=== PATIENT | male | born 2000 | race Caucasian/White ===

== ENCOUNTER → 2021-06-20 12:39 | Outpatient (REF) | payer BC, SELFPAY ==
--- NOTE | 2021-06-20 12:46 | ECG_ITS ---
Test Reason : cp Blood Pressure : / mmHG Vent. Rate : 080 BPM Atrial Rate : 082 BPM P-R Int : 140 ms QRS Dur : 072 ms QT Int : 336 ms P-R-T Axes : 067 078 056 degrees QTc Int : 387 ms Normal sinus rhythm with sinus arrhythmia Normal ECG No previous ECGs available Referred By: Nichol Wilson Electronically Signed By:PREMA FOSTER
== END ==
LOC: HO.CARD 12:39
PROVIDERS: PCP Pediatrics; Visit Provider Pediatrics
DX: R07.9 Chest pain, unspecified (principal)
CPT/HCPCS: 93005